=== PATIENT | female | born 1955 | race Caucasian/White ===

== ENCOUNTER 2019-09-06 06:50 | Day surgery (SDC) | payer BC, OTHER ==
[~2019-09-06 06:50] MED LIST: Acetaminophen TAB* 325 MG PO ONE; Buffered Lidocaine 1% SYRIN* 1 ML/SYRINGE INTRADERM ONE; Famotidine IV* 10 MG/ML 2 ML (20 mg) IV ONE; Lactated Ringers 1000 ML Bag* 1,000 ML IV SCH
[2019-09-06] MEDS ORDERED: ceFAZolin 1 GM ADVAN(*) 1 GM ADDV.VIAL IVPB ONE (07:36)
[2019-09-06] MEDS ORDERED: ceFAZolin 2 GM in NS PREMIX(*) 2 GM/100 ML BAG IVPB ONE (07:36)
[2019-09-06] MEDS ORDERED: Famotidine IV* 10 MG/ML 2 ML (20 mg) ONE (07:36)
[2019-09-06] MEDS ORDERED: Acetaminophen TAB* 325 MG ONE (07:36)
[2019-09-06] MEDS ORDERED: Bupivacaine 0.25% SDV PF* 10 ML VIAL INJ ONE (07:48)
[2019-09-06] MEDS ORDERED: Lidocaine 1% w EPI 1:200,000* SDV 30 ML VIAL ONE (07:48)
[2019-09-06] MEDS ORDERED: Propofol* 10 MG/ML 20 ML BTL ONE ×2 (08:26→08:47)
[2019-09-06] MEDS ORDERED: Midazolam* 1 MG/ML 2 ML VIAL (2 MG) ONE (08:26)
[2019-09-06] MEDS ORDERED: Naloxone* 0.4 MG/ML 1 ML VIAL IV PRN (08:44)
[2019-09-06] MEDS ORDERED: Ondansetron INJ* 2 MG/ML VIAL IV PRN (08:44)
[2019-09-06] MEDS ORDERED: DiMENhydriNATE IV* 50 MG/ML VIAL IV PUSH PRN (08:44)
[2019-09-06] MEDS ORDERED: fentaNYL* 50 MCG/ML 2 ML VIAL (100 MCG VIAL) IV PRN (08:44)
[2019-09-06 10:16] VITALS: BP 135/77
--- NOTE | 2019-09-06 18:04 | OP ---
OPERATIVE REPORT: DATE OF OPERATION: 09/06/19 DATE OF : 55 SURGEON: Dr. Álvaro Shah. ASSISTANT PORTFOLIO MANAGER: JUAN Wilson A physician optometric assistant was required for the length of procedure for assistance with the patient positi oning, retraction, and closure. ANESTHESIOLOGIST: Dr. Bubba Duron. ANESTHESIA: Local anesthesia and general sedation. Local anesthesia consisted of 10 cc of 1:1 ratio of Marcaine 0.25% without epinephrine and lidocaine 1% with epinephrine. PRE-OP DIAGNOSIS: Left carpal tunnel syndrome. POST-OP DIAGNOSIS: Left carpal tunnel syndrome. OPERATIVE PROCEDURE: Left open carpal tunnel release. ANTIBIOTICS: Ancef 3 g IV. IV FLUIDS: See Anesthesia note. VPIT-[id number] TIME: 11 minutes. TOURNIQUET TIME: 10 minutes at 250 mmHg left upper arm. SPECIMEN: None. COMPLICATIONS: None. ESTIMATED BLOOD LOSS: Minimal. INDICATIONS FOR PROCEDURE: A 64-year-old woman, retired, right-hand dominant, symptoms of carpal marleny doris, worse since June 2019. The patient complained of numbness and tingling index, long, and ring fingers, radial aspect of that ring finger. Part of that distribution was completely numb by histor y and physical exam. Discussed risks and potential complications. Moved forward with surgery. DESCRIPTION OF PROCEDURE: In preoperative holding, the patient signed a written consent. Operative extremity was marked in the preoperative holding. The patient was taken back to the operating room o n a stretcher. Hand table was applied. Some light sedation was applied. Mini time-out was performed. Local anesthetic was injected, 10 cc about the distal forearm and wrist per my standard technique. Tourniquet was applied to the left upper arm. The left upper extremity was prepped and draped. Formal surgical time- out performed. Made skin incision. There was some bleeding, decided to elevate tourniquet. Esmarch was applied and tourniquet was elevated to 250 mmHg. No bleeding. Dissected down carefully to longitudinal fascia. Incised the longitudinal fascia. Identified transverse carpal ligament. Identified of the apex of th is as well as the hook of the hamate. Incised the transverse carpal ligament with a knife. I could view its entire superficial aspect. Used a dental pick to free up the undersurface of the transverse carpal ligament. Released the ligament at its midsection and then distally. Then released it proxi jatin. The transverse carpal ligament was noted to be thickened. With the release, it retracted sig nificantly. I could see fat distally and the dental pick moved freely proximally into the distal fore arm. Definitely a thorough complete release. Irrigation. Closure of the skin with horizontal mattress and simple stitches using nylon 4-0 suture. Tourniquet dropped. A bulky dressing was applied, 4x4s, sterile Webril, Coban. The patient was lightened of sedation and transferred to the PACU. DISPOSITION: The patient will follow dressing instructions. The patient will follow up in 7 to 10 d ays. The patient will take tramadol or NSAIDs as needed for pain. [id number]/[facility] #: [id number]
== END 2019-09-06 10:53 | disposition home or self-care (01) ==
LOC: OR 06:50
PROVIDERS: ATTEND Orthopaedic Surgery
DX: G56.02 Carpal tunnel syndrome, left upper limb (principal); F17.210 Nicotine dependence, cigarettes, uncomplicated; K21.9 Gastro-esophageal reflux disease without esophagitis; M19.90 Unspecified osteoarthritis, unspecified site; E03.9 Hypothyroidism, unspecified
CPT/HCPCS: A9270-GY; J0690; J2001; J2250; J2704; J3490